=== PATIENT | male | born 1985 | race American Indian/Alaskan Native ===

== ENCOUNTER 2016-10-18 11:10 | Emergency (ER) | payer OTHER ==
[~2016-10-18] VITALS: Ht 172.7 cm; Wt 106.6 kg
[~2016-10-18 11:10] MED LIST: BENZTROPINE MESY1 MG PO; BENZTROPINE MESY2 MG PO; BUSPIRONE HCL15 MG PO; BUSPIRONE HCL30 MG PO; CYCLOBENZAPRINE10 MG PO; D-20002000 UNIT PO; EFFEXOR XR75 MG PO; ETODOLAC400 MG PO; FLUTICASONE PRO16 GM NS; FOLIC ACID1 MG PO; GABAPENTIN600 MG PO; HALDOL DEC100 MG/1 M IM; HYDROXYZINE PAM50 MG PO; IBUPROFEN800 MG PO; METOPROLOL SUCC25 MG PO; NEURONTIN300 MG PO; NORCO 5-325 TA1 EACH PO; OMEPRAZOLE20 MG PO; PERPHENAZINE2 MG PO; PERPHENAZINE4 MG PO; TRAZODONE HCL100 MG; VENLAFAXINE H37.5 MG PO; VICODIN 5-3001 EACH PO; VISTARIL50 MG PO; VITAMIN D1000 UNI1 PO; ZOFRAN4 MG PO
[2016-10-18] MEDS ORDERED: CHANTIX0.5 MG PO (11:47)
== END 2016-10-18 13:43 | disposition short-term general hospital (02) ==
LOC: ED 11:10
PROC: 3E0T3BZ Introduction of Anesthetic Agent into Peripheral Nerves and Plexi, Percutaneous Approach (ICD-10-PCS; principal; 2016-10-18)
DX: S66.326A Laceration of extensor muscle, fascia and tendon of right little finger at wrist and hand level, initial encounter (principal); E78.2 Mixed hyperlipidemia; I10 Essential (primary) hypertension; F20.9 Schizophrenia, unspecified; F90.9 Attention-deficit hyperactivity disorder, unspecified type; F31.9 Bipolar disorder, unspecified; E66.9 Obesity, unspecified; J45.909 Unspecified asthma, uncomplicated; K21.9 Gastro-esophageal reflux disease without esophagitis; F17.200 Nicotine dependence, unspecified, uncomplicated; Z88.5 Allergy status to narcotic agent; Z88.8 Allergy status to other drugs, medicaments and biological substances; Z79.899 Other long term (current) drug therapy; W23.0XXA Caught, crushed, jammed, or pinched between moving objects, initial encounter
CPT/HCPCS: 64450; 73140; 80048; 85025; 85610; 90471; 90715; 96374; 99285; J0295

== ENCOUNTER 2022-10-27 13:56 | Emergency (ER) | payer OTHER ==
[~2022-10-27] VITALS: Ht 172.7 cm; Wt 90.7 kg
[~2022-10-27 13:56] MED LIST changes: +CHANTIX0.5 MG PO
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
[2022-10-27 15:17] VITALS: BP 134/82
== END 2022-10-27 15:17 | disposition home or self-care (01) ==
LOC: ED 13:56
DX: T14.8XXA Other injury of unspecified body region, initial encounter (principal); W01.0XXA Fall on same level from slipping, tripping and stumbling without subsequent striking against object, initial encounter; Y93.02 Activity, running; F17.200 Nicotine dependence, unspecified, uncomplicated; Z88.5 Allergy status to narcotic agent; Z88.8 Allergy status to other drugs, medicaments and biological substances; J45.909 Unspecified asthma, uncomplicated; K21.9 Gastro-esophageal reflux disease without esophagitis; I10 Essential (primary) hypertension; E78.2 Mixed hyperlipidemia
CPT/HCPCS: 73080; 73560; 99283-25

== ENCOUNTER 2024-09-17 18:06 | Emergency (ER) | payer OTHER ==
[~2024-09-17] VITALS: Ht 172.7 cm; Wt 92.0 kg
[~2024-09-17 18:06] MED LIST changes: +ACETAMINOPHEN325 M1 PO; +COZAAR25 MG PO; +IBU-200200 MG PO
--- OUTSIDE RECORDS SUMMARY | 2024-09-17 18:14 | XMS ---
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 Myrna has no Care Guidelines for this patient. Kori VISIT COUNT (12 MO.) 1 MAMADOU Guerin TOTAL 1 NOTE: Visits indicate total known visits. ED/C VISIT TRACKING (12 MO.) 09/17/2024 18:08 [facility] TYPE: Emergency COMPLAINT: - DIZZY INPATIENT VISIT TRACKING (12 MO.) No inpatient visits to display in this time frame [id number]
[2024-09-17] MEDS ORDERED: LORazepam 2 MG/ML VIAL IV ONE ×2 (18:15→18:30)
[2024-09-17 18:30] LABS: BASOPHILS 0.7 % (0.2-1.2); EOSINOPHILS 3.0 % (0.8-7.0); LYMPHOCYTES 23.3 % (21.8-53.1); MCH 29.4 PG (25.7-32.2); MCHC 32.6 g/dL (32.3-36.5); MCV 90.3 fL (79.0-92.2); MONOCYTES 6.0 % (5.3-12.2); NEUTROPHILS 66.6 % (34.0-67.9); RBC 5.75 M/uL (4.63-6.08)
[2024-09-17] MEDS ORDERED: GABAPENTIN 400 MG CAP PO ONE (18:45)
[2024-09-17] MEDS ORDERED: SODIUM CHLORIDE 0.9% 1,000 ML IV PRN (18:45)
[2024-09-17 18:47] LABS: ALCOHOL, MEDICAL <3 ng/dL (<3); ALT (SGPT) 28 U/L (14-59); AST (SGOT) 15 U/L (15-37); GLOMERULAR FILTRATION RATE,EST 70 mL/min (>60); PROTEIN, TOTAL 8.7 g/dL (6.4-8.2); UREA NITROGEN 15 mg/dL (7-18)
[2024-09-17 22:55] VITALS: BP 121/55
--- NOTE | 2024-09-18 21:48 | EKG ---
[facility] [address] [place] [address] Signed Sinus tachycardia with fusion complexes Otherwise normal ECG No previous ECGs available Confirmed by Arlen Garcia MD () on 09/18/2024 9:47:47 PM Electronically Signed By: ARLEN GARCIA MD 09/18/24 2148 PATIENT NAME: KARLENE ZELAYARAJIVVAMSI OSULLIVAN Electrocardiogram DATE OF : 85 PHYSICIAN: ARLEN GARCIA MD REPORT #: [id number] REPORT IS CONFIDENTIAL AND NOT TO BE RELEASED WITHOUT AUTHORIZATION
== END 2024-09-17 22:55 | disposition home or self-care (01) ==
LOC: ED 18:06
PROVIDERS: Emergency Medicine
DX: R56.9 Unspecified convulsions (principal); E78.5 Hyperlipidemia, unspecified; I10 Essential (primary) hypertension; J45.909 Unspecified asthma, uncomplicated; K21.9 Gastro-esophageal reflux disease without esophagitis; F17.200 Nicotine dependence, unspecified, uncomplicated; Z79.899 Other long term (current) drug therapy; Z88.5 Allergy status to narcotic agent; Z88.8 Allergy status to other drugs, medicaments and biological substances
CPT/HCPCS: 36415; 70450; 80053; 80307; 81001; 85025; 93005; 93010; 96374; 99284-25; G0480; J2060; J7030

== ENCOUNTER 2024-09-19 11:59 | Emergency (ER) | payer OTHER ==
[~2024-09-19] VITALS: Ht 172.7 cm; Wt 92.0 kg
--- OUTSIDE RECORDS SUMMARY | 2024-09-19 12:01 | XMS ---
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 Myrna has no Care Guidelines for this patient. [facility] MO.) [facility] NOTE: Visits indicate total known visits. ED/C VISIT TRACKING (12 MO.) 09/19/2024 11:59 [facility] [address] [place] TYPE: Emergency COMPLAINT: - HEAD PAIN 09/17/2024 18:[address] [facility] [place] TYPE: Emergency COMPLAINT: - DIZZY DIAGNOSES: - Allergy status to narcotic agent - Allergy status to other drugs, medicaments and biological substances - Dizziness and giddiness - Essential (primary) hypertension - Gastro-esophageal reflux disease without esophagitis - Hyperlipidemia, unspecified - Nicotine dependence, unspecified, uncomplicated - Other penitentiary (current) drug therapy - Unspecified asthma, uncomplicated - Unspecified convulsions INPATIENT VISIT TRACKING (12 MO.) No inpatient visits to display in this time frame [id number]
[2024-09-19 12:37] VITALS: BP 135/109
== END 2024-09-19 12:37 | disposition other institution, planned readmission (95) ==
LOC: ED 11:59
DX: S00.81XA Abrasion of other part of head, initial encounter (principal); S80.212A Abrasion, left knee, initial encounter; S80.211A Abrasion, right knee, initial encounter; E78.2 Mixed hyperlipidemia; I10 Essential (primary) hypertension; J45.909 Unspecified asthma, uncomplicated; K21.9 Gastro-esophageal reflux disease without esophagitis; F17.200 Nicotine dependence, unspecified, uncomplicated; Z88.5 Allergy status to narcotic agent; Z88.8 Allergy status to other drugs, medicaments and biological substances; Z79.899 Other long term (current) drug therapy; W22.8XXA Striking against or struck by other objects, initial encounter
CPT/HCPCS: 99283

== ENCOUNTER 2024-09-24 18:42 | Emergency (ER) | payer OTHER ==
[~2024-09-24] VITALS: Ht 172.7 cm; Wt 81.0 kg
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
[2024-09-24 20:40] LABS: BASOPHILS 0.3 % (0.2-1.2); EOSINOPHILS 0.9 % (0.8-7.0); LYMPHOCYTES 7.8 % (21.8-53.1); MCH 29.8 PG (25.7-32.2); MCHC 34.2 g/dL (32.3-36.5); MCV 87.4 fL (79.0-92.2); MONOCYTES 8.1 % (5.3-12.2); NEUTROPHILS 82.5 % (34.0-67.9); RBC 4.19 M/uL (4.63-6.08)
[2024-09-24] MEDS ORDERED: TRAMADOL HCL50 MG PO (22:14)
[2024-09-24] MEDS ORDERED: AMOX TR-K CLV1 EAC1 PO (22:14)
[2024-09-24] MEDS ORDERED: TRAMADOL HCL 50 MG HOME.PACK PO ONE (22:30)
[2024-09-24] MEDS ORDERED: AMOXICILLIN/CLAVULANATE K 875 MG HOME.PACK PO ONE (22:30)
[2024-09-24 22:35] VITALS: BP 143/73
== END 2024-09-24 22:36 | disposition home or self-care (01) ==
LOC: ED 18:42
PROVIDERS: Family Medicine
DX: S00.83XA Contusion of other part of head, initial encounter (principal); L08.9 Local infection of the skin and subcutaneous tissue, unspecified; E78.5 Hyperlipidemia, unspecified; I10 Essential (primary) hypertension; J45.909 Unspecified asthma, uncomplicated; K21.9 Gastro-esophageal reflux disease without esophagitis; F17.200 Nicotine dependence, unspecified, uncomplicated; Y04.8XXA Assault by other bodily force, initial encounter; Z79.899 Other long term (current) drug therapy; Z88.5 Allergy status to narcotic agent; Z88.1 Allergy status to other antibiotic agents; Z88.8 Allergy status to other drugs, medicaments and biological substances
CPT/HCPCS: 36415; 70486; 85025; 99284-25; A9270

== ENCOUNTER 2024-10-28 15:15 | Emergency (ER) | payer OTHER ==
[~2024-10-28] VITALS: Ht 172.7 cm; Wt 92.4 kg
[~2024-10-28 15:15] MED LIST changes: +AMOX TR-K CLV1 EAC1 PO; +TRAMADOL HCL50 MG PO
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
[2024-10-28 15:35] LABS: BASOPHILS 0.8 % (0.2-1.2); EOSINOPHILS 1.4 % (0.8-7.0); LYMPHOCYTES 17.7 % (21.8-53.1); MCH 29.8 PG (25.7-32.2); MCHC 33.5 g/dL (32.3-36.5); MCV 88.8 fL (79.0-92.2); MONOCYTES 4.4 % (5.3-12.2); NEUTROPHILS 75.5 % (34.0-67.9); RBC 4.30 M/uL (4.63-6.08)
[2024-10-28] MEDS ORDERED: SODIUM CHLORIDE 0.9% 1,000 ML IV ONE (15:45)
[2024-10-28 15:58] LABS: ALCOHOL, MEDICAL <3 ng/dL (<3); ALT (SGPT) 31 U/L (14-59); AST (SGOT) 12 U/L (15-37); GLOMERULAR FILTRATION RATE,EST 115 mL/min (>60); PROTEIN, TOTAL 7.1 g/dL (6.4-8.2); TSH, 3RD GENERATION 1.218 uIU/mL (0.358-3.740); UREA NITROGEN 10 mg/dL (7-18)
[2024-10-28] MEDS ORDERED: POTASSIUM CHLORIDE 10 MEQ/100 ML BAG IV SCH ×2 (17:30→21:30)
[2024-10-28 20:21] LABS: GLOMERULAR FILTRATION RATE,EST 118 mL/min (>60); UREA NITROGEN 11 mg/dL (7-18)
[2024-10-29 04:26] LABS: BLOOD/HGB, URINE NEGATIVE (Negative); KETONE, URINE NEGATIVE (Negative); LEUK ESTERASE, URINE NEGATIVE (negative); NITRITE, URINE NEGATIVE (negative)
[2024-10-29 04:39] LABS: AMPHETAMINES, URINE NEGATIVE (NEGATIVE); BARBITURATES, URINE NEGATIVE (NEGATIVE); BENZODIAZEPINE, URINE NEGATIVE (NEGATIVE); CANNABINOID, URINE POSITIVE (NEGATIVE); COCAINE, URINE NEGATIVE (NEGATIVE); ECSTASY, URINE POSITIVE (NEGATIVE); FENTANYL, URINE NEGATIVE (NEGATIVE); METHADONE, URINE NEGATIVE (NEGATIVE); OPIATES, URINE NEGATIVE (NEGATIVE); OXYCODONE, URINE NEGATIVE (NEGATIVE); PHENCYCLIDINE, URINE NEGATIVE (NEGATIVE)
[2024-10-29] MEDS ORDERED: HALOPERIDOL LACTATE 5 MG/ML VIAL ONE (06:35)
[2024-10-29] MEDS ORDERED: LORazepam 2 MG/ML VIAL ONE (06:36)
[2024-10-29] MEDS ORDERED: LORazepam 2 MG/ML VIAL IM ONE (06:45)
[2024-10-29] MEDS ORDERED: HALOPERIDOL LACTATE 5 MG/ML VIAL IM ONE (06:45)
[2024-10-29] MEDS ORDERED: QUETIAPINE FUMARATE 25 MG TAB PO SCH (09:00)
[2024-10-29 14:32] VITALS: BP 145/92
--- NOTE | 2024-10-29 15:47 | EKG ---
[facility] [address] [place] [address] Signed Sinus tachycardia Prolonged QT Abnormal ECG When compared with ECG of 17-SEP-2024 18:09, fusion complexes are no longer present Nonspecific T wave abnormality now evident in Inferior leads Confirmed by Annie Gaspar MD ([id number]) on 10/29/2024 3:47:29 PM Electronically Signed By: ANNIE GASPAR MD 10/29/24 1547 PATIENT NAME: RAJIV HALL Electrocardiogram DATE OF : 85 PHYSICIAN: ANNIE GASPAR MD REPORT #: [id number] REPORT IS CONFIDENTIAL AND NOT TO BE RELEASED WITHOUT AUTHORIZATION
--- NOTE | 2024-10-30 08:12 | EKG ---
[facility] [address] [facility] [place], [place] [address] Signed Normal sinus rhythm Cannot rule out Anterior infarct , age undetermined Abnormal ECG When compared with ECG of 28-OCT-2024 15:43, (Unconfirmed) QT has shortened Confirmed by Annie Gaspar MD ([id number]) on 10/30/2024 8:12:41 AM Electronically Signed By: ANNIE GASPAR MD 10/30/24811 PATIENT NAME: RAJIV HALL Electrocardiogram DATE OF : 85 PHYSICIAN: ANNIE GASPAR MD REPORT #: [id number] REPORT IS CONFIDENTIAL AND NOT TO BE RELEASED WITHOUT AUTHORIZATION
== END 2024-10-29 14:32 | disposition home or self-care (01) ==
LOC: ED 15:15
PROVIDERS: Emergency Medicine; Internal Medicine
DX: T42.4X1A Poisoning by benzodiazepines, accidental (unintentional), initial encounter (principal); T14.91XA Suicide attempt, initial encounter; I10 Essential (primary) hypertension; F17.200 Nicotine dependence, unspecified, uncomplicated; X71.3XXA Intentional self-harm by drowning and submersion in natural water, initial encounter; Z88.5 Allergy status to narcotic agent; Z88.8 Allergy status to other drugs, medicaments and biological substances; Z79.899 Other long term (current) drug therapy
CPT/HCPCS: 36415; 80048; 80053; 80307; 81003; 83735; 84443; 85025; 93005; 93010; 96365; 96366; 96372; 99285-25; A9270; G0480; J1200; J1630; J2060; J3480; J7030